=== PATIENT | female | born 1985 | race Caucasian/White ===

== ENCOUNTER 2024-07-13 09:36 | Observation (INO) ==
--- NOTE | 2024-07-13 10:15 | ED Triage Note ---
Date of Service July 13, 2024 Provider in Triage Author: Marin Parker History of Present Illness This patient was briefly evaluated while in triage. An abbreviated physical exam was performed. This patient is a 39-year-old Female who presents to the ED for evaluation of right lower quadrant abdominal pain. Pain started Sunday night, sick to her stomach with nausea and vomiting. Patient reports that her entire abdomen was cramping. The pain has since moved to the right lower quadrant region over the following 48 hours. Patient has not noticed any obvious aggravating or alleviating factors. Patient denies any pain radiating into the back. The patient rates her discomfort a 5 out of 10. Patient denies risk for . Physical Exam CONSTITUTIONAL: Healthy and well nourished. Alert and oriented X 3. HEENT: Normocephalic, atraumatic. Pupils equal, round and reactive. NECK: Full active range of motion without discomfort. LYMPHATICS: No cervical chain adenopathy. RESPIRATORY: Clear to auscultation bilaterally with no wheezing, crackles, rhonchi or stridor. CARDIOVASCULAR: Regular rate and rhythm with no murmurs, rubs or gallops. GASTROINTESTINAL: Bowel sounds present in all quadrants. Patient has mild right lower quadrant tenderness to palpation. Negative Rovsing sign. INTEGUMENTARY: No rash or other significant dermatologic conditions noted. HEMATOLOGIC: No ecchymosis or petechiae. PSYCHIATRIC: Positive affect. NEUROLOGIC: No focal neurologic deficits noted. Initial orders for labs and / or imaging were placed and patient was placed in the waiting area until a bed is available. Please see further documentation for the full ED course.
[2024-07-13] MEDS: SODIUM CHLORIDE 0.9% 1,000 ML IV STA (10:29)
[2024-07-13 10:58] LABS: Appearance Urine Clear (Clear); Bacteria Urine Automated 1+ (None Seen); Bilirubin Urine Negative (Negative); Blood Urine Negative (Negative); Cast Urine Automated 0-2 /lpf (0-2); Color Urine Yellow; Glucose Urine UA Negative (Negative); Ketones Urine Trace (Negative); Leukocyte Esterase Urine Negative (Negative); Nitrite Urine Negative (Negative); Protein Urine Trace (Negative); Specific Gravity Urine 1.026 (1.000-1.030); Urobilinogen Urine Negative (Negative); WBC Urine Automated 0-5 /hpf (0-5)
[2024-07-13 10:59] LABS: Basophils # (auto) 0.04 K/uL (0.00-0.20); Basophils % (auto) 0.4 %; Eosinophils % (auto) 1.1 %; Hemoglobin 14.5 g/dl (12.0-16.0); Immature Granulocytes # (auto) 0.04 K/uL (0.01-0.20); Immature Granulocytes % (auto) 0.4 %; Lymphocytes # (auto) 2.78 K/uL (1.20-3.40); Lymphocytes % (auto) 30.3 %; Mean Corpuscular Hemoglobin 30.1 pg (25.0-34.0); Mean Corpuscular Hgb Conc 33.7 g/dL (32.0-36.0); Mean Corpuscular Volume 89.2 fL (80.0-100.0); Mean Platelet Volume 9.6 fL (9.4-12.4); Monocytes # (auto) 0.65 K/uL (0.11-0.59); Monocytes % (auto) 7.1 %; Neutrophils # (auto) 5.55 K/uL (1.40-6.50); Neutrophils % (auto) 60.7 %; Platelet Count 303 K/uL (130-400); RDW Coefficient of Variation 11.9 % (11.5-14.5); RDW Standard Deviation 38.6 fL (36.4-46.3); Red Blood Count 4.82 M/uL (4.20-5.40); White Blood Count 9.16 K/ul (4.8-10.8)
[2024-07-13 11:26] LABS: Albumin Globulin Ratio 1.5 (0.9-2); Albumin Level 4.8 gm/dl (3.4-5.0); BUN Creatinine Ratio 18.2 (10-20); Bilirubin,Total 0.9 mg/dl (0.2-1.0); Calcium 9.8 mg/dl (8.6-10.3); Creatinine Clr Calc Pharmacy 92.3 ml/min; Est GFR (African American) 111.2 ml/min; Est GFR (Non-African American) 95.9 ml/min; Globulin 3.1 gm/dl (2.5-4.0); Potassium 4.2 mmol/L (3.5-5.1); Total Protein 7.9 gm/dl (6.0-8.3)
[2024-07-13 11:28] LABS: Pregnancy Test, Serum Negative (Negative)
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
[2024-07-13] MEDS: OPTIRAY 320 100ml IV ONE (11:56)
--- NOTE | 2024-07-13 13:01 | CT Scan Report ---
CT OF THE ABDOMEN AND PELVIS WITH CONTRAST CLINICAL HISTORY: Right lower quadrant abdominal pain. COMPARISON STUDY: None. TECHNIQUE: Following IV administration of 93 mL of Optiray, axial images of the abdomen and pelvis we re obtained from the lung bases to the proximal femurs. Images were reviewed in the axial, sagittal, and coronal planes. IV contrast was administered without complication. Automated exposure control wa s utilized for the study. A dose lowering technique was utilized adhering to the principles of ALARA . CT DOSE: 1279.86 mGy.cm FINDINGS: Visualized portions of the lung bases are unremarkable. There is hepatic steatosis. There a re no hepatic lesions. There is no biliary or pancreatic ductal dilatation. There are multiple gallst ones within the gallbladder. There is no evidence for acute cholecystitis. The adrenal glands, kidney s and pancreas are unremarkable. There is no hydronephrosis. The appendix is mildly dilated with wall thickening. The appendix measures 1 cm in caliber. There is mild periappendiceal stranding. There is no free air. There is no abscess. No evidence for a bowel obstruction. Major vasculature is patent. There is no lymphadenopathy. IMPRESSION: 1. Findings consistent with acute appendicitis. No free air or abscess. Mild inflammation. 2. Cholelithiasis. ACT 112: Negative or not required by law. Electronically signed by: Norman Gotti M.D. 07/13/2024 12:59 PM
--- NOTE | 2024-07-13 13:47 | History & Physical Report ---
Date of Service July 13, 2024 Assessment & Plan (1) Acute appendicitis: Plan: 39-year-old woman with acute appendicitis. I discussed the risks and benefits of a laparoscopic appendectomy with her. All her questions were answered, she is agreeable to proceed. Consent has been obtained. Will take her to the operating room at the earliest convenience for laparoscopic appendectomy. History of Present Illness Primary Care Provider: Yvonne Mejia 39-year-old woman presents with a 4-day history of crampy abdominal pain in the mid abdomen that has now radiated to the right lower quadrant. It was accompanied by nausea and vomiting and slight fevers. The pain is now in the right lower quadrant and is more of a stabbing character. Last meal was yesterday evening, a banana. She has been having normal bowel movements. She has a prior history of 3 C-sections. Past Med/Surg History Problem List (Updated 07/13/24 @ 13:48 by Micha Quintana MD) Acute appendicitis Abdominal pain (Acute) No pertinent past medical history Social History Smoking Status: Never smoker Feels Safe at Home: Yes Review of Systems Review of Systems: All systems reviewed & are unremarkable except as noted in HPI & below Physical Exam Constitutional: WD/WN, vitals as above Eyes: PERRL, conjunctivae normal, anicteric sclerae Neck: trachea midline, no thyromegaly Respiratory: normal respiratory effort; no respiratory distress and no labored breathing Cardiovascular: Rate/Rhythm: regular rate and regular rhythm Gastrointestinal (Abdomen): Inspection/Auscultation: abdomen normal to inspection; abdomen not distended Percussion/Palpation: + abdomen tender ( TTP in RLQ) and abdomen soft; no guarding and abdomen not rigid Skin: no rashes, warm and dry Psychiatric: A+Ox3, euthymic affect Results & Data Results & Data Vital Signs (Past 12 Hours) Vital Signs Temp Pulse Pulse Resp BP BP Pulse Ox 07/13/24 12:26 81 18 149/77 H 97 07/13/24 10:16 36.7 C 86 20 149/89 H 99 O2 Del Method 07/13/24 12:26 Room Air 07/13/24 10:16 Room Air Laboratory Results 07/13/24 Range/Units 10:30 WBC 9.16 (4.8-10.8) K/ul RBC 4.82 (4.20-5.40) M/uL Hgb 14.5 (12.0-16.0) g/dl Hct 43.0 (37.0-47.0) % MCV 89.2 (80.0-100.0) fL MCH 30.1 (25.0-34.0) pg MCHC 33.7 (32.0-36.0) g/dL RDW Std Deviation 38.6 (36.4-46.3) fL RDW Coeff of Rodolfo 11.9 (11.5-14.5) % Plt Count 303 (130-400) K/uL MPV 9.6 (9.4-12.4) fL Immature Gran % (Auto) 0.4 % Neut % (Auto) 60.7 % Lymph % (Auto) 30.3 % [place] % (Auto) 7.1 % Eos % (Auto) 1.1 % Baso % (Auto) 0.4 % Neut # (Auto) 5.55 (1.40-6.50) K/uL Lymph # (Auto) 2.78 (1.20-3.40) K/uL Ellis # (Auto) 0.65 H (0.11-0.59) K/uL Eos # (Auto) 0.10 (0.00-0.50) K/uL Baso # (Auto) 0.04 (0.00-0.20) K/uL Immature Gran # (Auto) 0.04 (0.01-0.20) K/uL Sodium 138 (136-145) mmol/L Potassium 4.2 (3.5-5.1) mmol/L Chloride 105 (98-107) mmol/L Carbon Dioxide 27 (21-32) mmol/L Anion Gap 6 (3-11) BUN 14 (6-23) mg/dl Creatinine 0.77 (0.6-1.2) mg/dl Est Cr Clr Drug Dosing 92.3 ml/min Est GFR ( Amer) 111.2 ml/min Est GFR (Non-Af Amer) 95.9 ml/min BUN/Creatinine Ratio 18.2 (10-20) Glucose 101 H (70-99(Fasting)) mg/dl Calcium 9.8 (8.6-10.3) mg/dl Total Bilirubin 0.9 (0.2-1.0) mg/dl AST 26 (13-39) U/L ALT 32 (7-52) U/L Alkaline Phosphatase 84 (34-104) U/L Total Protein 7.9 (6.0-8.3) gm/dl Albumin 4.8 (3.4-5.0) gm/dl Globulin 3.1 (2.5-4.0) gm/dl Albumin/Globulin Ratio 1.5 (0.9-2) Lipase 11 (11-82) U/L HCG, Qual Negative (Negative) Urine Color Yellow Urine Appearance Clear (Clear) Urine pH 6.0 (4.5-7.5) Ur Specific [place] 1.026 (1.000-1.030) Urine Protein Trace H (Negative) Urine Glucose (UA) Negative (Negative) Urine Ketones Trace H (Negative) Urine Blood Negative (Negative) Urine Nitrite Negative (Negative) Urine Bilirubin Negative (Negative) Urine Urobilinogen Negative (Negative) Ur Leukocyte Esterase Negative (Negative) Urine WBC (Auto) 0-5 (0-5) /hpf Urine RBC (Auto) 3-5 H (0-2) /hpf U Hyaline Cast (Auto) 0-2 (0-2) /lpf U Epithel Cells (Auto) 11-20 H (0-2) /hpf Urine Bacteria (Auto) 1+ H (None Seen) Diagnostic Findings CT OF THE ABDOMEN AND PELVIS WITH CONTRAST CLINICAL HISTORY: Right lower quadrant abdominal pain. COMPARISON STUDY: None. TECHNIQUE: Following IV administration of 93 mL of Optiray, axial images of the abdomen and pelvis were obtained from the lung bases to the proximal femurs. Images were reviewed in the axial, sagittal, and coronal planes. IV contrast was administered without complication. Automated exposure control was utilized for the study. A dose lowering technique was utilized adhering to the principles of ALARA. CT DOSE: 1279.86 mGy.cm FINDINGS: Visualized portions of the lung bases are unremarkable. There is hepatic steatosis. There are no hepatic lesions. There is no biliary or pancreatic ductal dilatation. There are multiple gallstones within the gallbladder. There is no evidence for acute cholecystitis. The adrenal glands, kidneys and pancreas are unremarkable. There is no hydronephrosis. The appendix is mildly dilated with wall thickening. The appendix measures 1 cm in caliber. There is mild periappendiceal stranding. There is no free air. There is no abscess. No evidence for a bowel obstruction. Major vasculature is patent. There is no lymphadenopathy. IMPRESSION: 1. Findings consistent with acute appendicitis. No free air or abscess. Mild inflammation. 2. Cholelithiasis. ACT 112: Negative or not required by law. Electronically signed by: Norman Gotti M.D. 07/13/2024 12:59 PM Dictated: 07/13/24 125
--- NOTE | 2024-07-13 14:02 | Anesthesiology Consultation ---
Date of Service July 13, 2024 Assessment & Plan Chart Review Chart Review: Acceptable Risk for Surgery and Patient NOT seen in Pre Admission Testing Consults Requested none ASA [id number] Proposed Anesthesia Anesthesia Type: General History Surgery Operation Date: 07/13/24 14:00 Proposed Procedures p Laparoscopic Appendectomy - Micha Quintana MD Height/Weight Height: 5 ft Weight: 83.8 kg Allergies Allergy/AdvReac Type Severity Reaction Status Date / Time Milk Containing Products Allergy Intermediate Gastrointestinal Unverified 07/13/24 13:58 (Dairy) Upset codeine Allergy Unknown Childhood Unverified 07/13/24 13:58 allergy - Unknown - Possible Rash/Irritability erythromycin base Allergy Unknown Childhood Unverified 07/13/24 13:58 [From Pediazole] allergy - Unknown - Possible Rash/Irritability sulfisoxazole Allergy Unknown Childhood Unverified 07/13/24 13:58 [From Pediazole] allergy - Unknown - Possible Rash/Irritability Medications Home Medications Medication Instructions Recorded Confirmed Last Taken No Known Home Medications 07/13/24 07/13/24 Unknown Past Medical History obese Exercise / Class Metabolic Activity II 4-5 Yardwork/Stairs/Walk up hill Past Anesthesia History No Hx of Anesthesia Complications and No Family Hx of Anesthesia Complications History of PONV No Hx of PONV and No Hx of Motion Sickness Social History Smoking Status: Never smoker Physical Exam Vital Signs Last Vital Signs Temp 36.7 C 07/13/24 10:16 Pulse 81 07/13/24 12:26 Resp 18 07/13/24 12:26 BP 149/77 H 07/13/24 12:26 Pulse Ox 97 07/13/24 12:26 O2 Del Method Room Air 07/13/24 12:26 Testing Laboratory Results 07/13/24 10:30 07/13/24 10:30 Urine Color Yellow 07/13/24 10:30 Urine Appearance Clear (Clear) 07/13/24 10:30 Urine pH 6.0 (4.5-7.5) 07/13/24 10:30 Ur Specific [place] 1.026 (1.000-1.030) 07/13/24 10:30 Urine Protein Trace (Negative) H 07/13/24 10:30 Urine Glucose (UA) Negative (Negative) 07/13/24 10:30 Urine Ketones Trace (Negative) H 07/13/24 10:30 Urine Nitrite Negative (Negative) 07/13/24 10:30 Ur Leukocyte Esterase Negative (Negative) 07/13/24 10:30 Urine WBC (Auto) 0-5 /hpf (0-5) 07/13/24 10:30 Urine RBC (Auto) 3-5 /hpf (0-2) H 07/13/24 10:30 U Hyaline Cast (Auto) 0-2 /lpf (0-2) 07/13/24 10:30 U Epithel Cells (Auto) 11-20 /hpf (0-2) H 07/13/24 10:30 Urine Bacteria (Auto) 1+ (None Seen) H 07/13/24 10:30
[2024-07-13] MEDS: PIPERACILLIN/TAZOBACTAM 4.5 GM/100 ML BAG IV ONE (14:42)
[2024-07-13] MEDS ORDERED: PROPOFOL IV EMULSION 10 MG/ML 20 ML VIAL IV ONE (14:46)
[2024-07-13] MEDS ORDERED: fentaNYL citrate PF 100 MCG/2 ML VIAL ONE (14:47)
[2024-07-13] MEDS ORDERED: MIDAZOLAM HCL 1 MG/ML 2ML VIAL ONE (14:48)
[2024-07-13] MEDS ORDERED: LABETALOL HCL IV 5 MG/ML 20ML IV PRN (15:05)
[2024-07-13] MEDS ORDERED: PROMETHAZINE HCL 6.25 MG in SODIUM CHLORIDE 0.9% 50 ML IV PRN (15:05)
[2024-07-13] MEDS ORDERED: ONDANSETRON INJ 2 MG/ML 2 ML VIAL IV PRN ×2 (15:05→17:20)
[2024-07-13] MEDS ORDERED: FLUMAZENIL 0.1 MG/1 ML 10 ML VIAL IV PRN (15:05)
[2024-07-13] MEDS ORDERED: NALOXONE HCL 0.4 MG/1 ML VIAL/CARP IV PRN (15:05)
[2024-07-13] MEDS ORDERED: ATROPINE SULFATE 0.1 MG/ML 10ML SYR IV PRN (15:05)
[2024-07-13] MEDS ORDERED: ePHEDrine sulfate 50 MG/ML AMP IV PRN (15:05)
[2024-07-13] MEDS ORDERED: NEOSTIGMINE METHYLSULFATE 1 MG/ML 10ML VIAL ONE (15:24)
[2024-07-13] MEDS ORDERED: GLYCOPYRROLATE 0.2 MG/ML VIAL ONE (15:24)
[2024-07-13] MEDS ORDERED: DEXAMETHASONE SOD INJ 4 MG/ML VIAL ONE (15:24)
[2024-07-13] MEDS ORDERED: SUCCINYLCHOLINE CHLORIDE 20 MG/ML 10 ML VIAL IV ONE (15:24)
[2024-07-13] MEDS ORDERED: CISATRACURIUM BESYLATE IV SOLN 2 MG/ML 10 ML VIAL IV ONE (15:24)
[2024-07-13] MEDS ORDERED: ONDANSETRON INJ 2 MG/ML 2 ML VIAL ONE (15:24)
--- NOTE | 2024-07-13 15:56 | Post Operative Brief Note ---
Immediate Post Op Note Date of Surgery July 13, 2024 Pre & Post Diagnosis Operation Date: 07/13/24 14:00 Pre-Op Diagnosis: Acute appendicitis Post-Op Diagnosis: Acute appendicitis I identified the patient and participated in the time-out.: Yes Procedure Operation Date: 07/13/24 14:00 Actual Procedures p Laparoscopic Appendectomy - Micha Quintana MD Surgeon Micha Quintana MD Calculator Operator None Estimated Blood Loss 5 Findings Consistent with Post-Op Diagnosis
--- NOTE | 2024-07-13 15:57 | Operative Report ---
Post Operative Report Pre & Post Diagnosis Operation Date: 07/13/24 14:00 Pre-Op Diagnosis: Acute appendicitis Post-Op Diagnosis: Acute appendicitis I identified the patient and participated in the time-out.: Yes Procedure Operation Date: 07/13/24 14:00 Actual Procedures p Laparoscopic Appendectomy with laparoscopic lysis of adhesions - Micha Quintana MD Surgeon Micha Quintana MD Community Service Director None Estimated Blood Loss 5 Findings Consistent with Post-Op Diagnosis acute appendicitis without perforation, significant omental adhesions to the anterior abdominal wall Specimens appendix Drains none Anesthesia Type General Complications none Description of Procedure the patient was taken to the operating room, and placed supine on the operating table. A timeout was performed, perioperative antibiotics were administered, SCD boots were placed. After adequate anesthesia and analgesia was obtained, the abdomen was prepped and draped in the normal sterile fashion. A 1 cm incision was made in the supraumbilical region and carried down to the level of the fascia. A trach hook was used to grasp the fascia and elevated and a varies needle was used to enter the abdominal cavity. The abdomen was insufflated to a pressure of 15 mmHg, and a 5 mm trocar was placed in this location. A 5 mm 30 degree laparoscope was placed into the abdominal cavity, and the abdomen was surveyed. There were significant adhesions of the omentum to the anterior abdominal wall in the lower abdomen. The patient was placed in Trendelenburg and slightly to the left. One 5 mm trocar was placed in the right upper quadrant, and one 12 mm trocar was placed in the left lower quadrant under direct visualization. The omental adhesions to the anterior abdominal wall were taken down with combination of cold scissor dissection and blunt forcep dissection.The right colon was identified and traced down to the cecum. The appendix was identified and elevated anteriorly and medially. A window was created at the base of the appendix with a [place] dissector. The Endo VIK stapler was used to transect the appendix at its base through noninflamed tissue, and subsequently the mesoappendix. The appendix was placed in an Endo Catch bag, and removed via the left lower quadrant port site. Attention was turned to hemostasis, which was excellent. The abdomen was copiously irrigated and suctioned free, and again hemostasis was found to be excellent. All trochars removed under direct visualization. The abdomen was desufflated. The fascia in the 12 mm port site was closed with a 0 Vicryl suture. The skin was closed with a running 4-0 Monocryl subcuticular stitch. Dermabond was applied. The patient tolerated the procedure without complication, and was transferred in stable condition to the PACU. All instrument, needle, and sponge counts were correct at the end of the case. I attest to the content of the Intraoperative Record and any orders documented therein. Any exceptions are noted below.
[2024-07-13] MEDS: fentaNYL citrate PF 100 MCG/2 ML VIAL IV PRN (16:22)
[2024-07-13] MEDS: fentaNYL citrate PF 100 MCG/2 ML VIAL ONE (16:33)
--- NOTE | 2024-07-13 17:18 | Anesthesiology Progress Note ---
Date of Service July 13, 2024 Anesthesia Post Procedure Vital Signs Vital Signs: Temp Pulse Pulse Pulse Resp BP BP 07/13/24 16:50 36.6 C 60 12 114/71 07/13/24 16:40 59 L 16 125/71 07/13/24 16:30 57 L 16 124/67 07/13/24 16:20 73 16 119/67 07/13/24 16:10 36.1 C L 93 H 18 122/83 07/13/24 14:41 70 18 147/101 H 07/13/24 12:26 81 18 149/77 H 07/13/24 10:16 36.7 C 86 20 149/89 H Pulse Ox O2 Del Method O2 Flow Rate 07/13/24 16:50 95 Room Air 07/13/24 16:40 95 Oxymask 2 07/13/24 16:30 99 Oxymask 4 07/13/24 16:20 96 Oxymask 4 07/13/24 16:10 97 Oxymask 6 07/13/24 14:41 97 Room Air 07/13/24 12:26 97 Room Air 07/13/24 10:16 99 Room Air Pain Intensity Abdomen: Pain Intensity: 3 Transfer of Care Handoff Completed per policy Notes Mental Status: alert / awake / arousable Patient Amnestic to Procedure: Yes Nausea / Vomiting: adequately controlled Pain: adequately controlled Airway Patency, RR, SpO2: stable & adequate BP & HR: stable & adequate Hydration State: stable & adequate Anesthetic Complications: no major complications apparent
[2024-07-13] MEDS ORDERED: KETOROLAC 30 MG/ML VIAL IV PRN (17:20)
[2024-07-13] MEDS ORDERED: diphenhydrAMINE Capsule 25 MG CAP PO PRN (17:20)
[2024-07-13] MEDS ORDERED: MoRPHine SULFATE 2 MG/ML CARP IV PRN (17:20)
[2024-07-13] MEDS ORDERED: PROMETHAZINE 12.5 MG/50.5 ML BAG IV PRN (17:20)
[2024-07-13] MEDS: BUPIVACAINE/EPINEPHRINE 0.5% MPF 1:200,000 30 ML VIAL ONE (17:36)
[2024-07-13 18:04] VITALS: RESP 16
[2024-07-13] MEDS: oxyCODONE/ACETAMINOPHEN 5mg/325mg TAB PO PRN (18:15)
[2024-07-14] MEDS: ACETAMINOPHEN 500 MG TAB PO PRN (07:48)
[2024-07-14] MEDS: ENOXAPARIN INJ 40 MG/0.4 ML SYR SQ SCH (07:48)
[2024-07-14 07:57] VITALS: BP 145/66; PULSE 68; TEMP 97.9; O2SAT 95
--- NOTE | 2024-07-14 09:08 | Discharge Summary ---
Date of Service July 14, 2024 Admission HPI Per Admitting Provider 39-year-old woman presents with a 4-day history of crampy abdominal pain in the mid abdomen that has now radiated to the right lower quadrant. It was accompanied by nausea and vomiting and slight fevers. The pain is now in the right lower quadrant and is more of a stabbing character. Last meal was yesterday evening, a banana. She has been having normal bowel movements. She has a prior history of 3 C-sections. Principal Diagnosis acute appendicitis Discharge Exam Constitutional WD/WN, vitals as above cooperative and comfortable; no acute distress and not ill appearing Respiratory normal respiratory effort; no respiratory distress Gastrointestinal (Abdomen) Inspection/Auscultation: abdomen normal to inspection and + abdominal surgical incision (c/d/i with dermabond); abdomen not distended Percussion/Palpation: + abdomen tender (mild at incision sites) and abdomen soft; no guarding, abdomen not rigid and abdomen not firm Skin no rashes, warm and dry Psychiatric A+Ox3, euthymic affect Discharge Data Allergies Allergy/AdvReac Type Severity Reaction Status Date / Time Milk Containing Products Allergy Intermediate Gastrointestinal Unverified 07/13/24 13:58 (Dairy) Upset codeine Allergy Unknown Childhood Unverified 07/13/24 13:58 allergy - Unknown - Possible Rash/Irritability erythromycin base Allergy Unknown Childhood Unverified 07/13/24 13:58 [From Pediazole] allergy - Unknown - Possible Rash/Irritability sulfisoxazole Allergy Unknown Childhood Unverified 07/13/24 13:58 [From Pediazole] allergy - Unknown - Possible Rash/Irritability Procedures Performed Operation Date: 07/13/24 14:00 Actual Procedures p Laparoscopic Appendectomy - Micha Quintana MD Ordered Studies 07/13/24 10:19 CT abd pelvis IV con only Stat Hospital Course (1) Acute appendicitis: Patient taken to operating room for laparoscopic appendectomy on 07/13/[address] Micha Quintana. Found to have uncomplicated appendicitis. Transferred to med/surg floor postoperatively. Diet and activity as tolerated. Pain management as needed. POD # 1 avss, pain controlled, tolerated regular diet, ambulated hallway. Patient discharged home on POD # 1 in stable condition. Total Time Total Time Spent Total Time Spent (In Minutes): 20 Total Time Includes: Examination of the Patient, Discharge Planning and Medication Reconciliation Discharge Plan Discharge Items Patient Disposition: Home - Self-Care Reason For Visit: ABDOMINAL PAIN, NAUSEA, VOMITING Discharge Diagnosis: Acute appendicitis Activity: Per Instructions section Non-emergency contact: Primary Care Provider and Surgeon Call non-emergency contact if: you have any medication questions, you have a fever, your temperature is above 101, your wound has increased redness, your wound has increased drainage and your wound pain has increased Follow-up/Referrals: Micha Quintana MD [Physician] - Yvonne Mejia [Primary Care Provider] - Diet: Regular Addtl Attending Provider Instructions: Post-Surgical ~Discharge Instructions Activity Recommendations: - lifting limitation: (20 pounds for 2 weeks), - exercise/sex/sports limit: (nonstrenuous for 2 weeks), - driving or machine use limit: (none for 1 week or until pain free and no longer taking narcotic pain medication) - Shower/bathe limit: (may shower beginning tomorrow) Diet: - Resume previous diet SPECIAL CARE INSTRUCTIONS: - May shower. Let water run over area and pat dry. - Leave surgical glue on incisions, this will fall off on its own. - Call the surgeon's office with any questions or concerns - - (ex. temperature higher than 101 degrees F, excessive bleeding or pain). MEDICATIONS: - Resume previous medications unless instructed otherwise by your surgeon. May alternate extra strength Tylenol and Ibuprofen as needed for mild to moderate pain -650 mg Tylenol every 6 hours as needed - Ibuprofen 600 mg every 6 hours as needed take with food - Percocet 1 every 6 hours, as needed for moderate to severe pain - Recommend daily stool softener (Colace) while taking narcotic pain medication to prevent constipation or straining. Drink plenty of water daily. FOLLOW UP VISIT: - If not already scheduled, please call the office to schedule a two week fo llow-up appointment. Office number Pending Studies at Discharge: Yes (pathology, will be reviewed at postop visit) Stand-Alone Forms: My [facility] [employer], Work/School Release, Smoking Cessation Medications and DC Order Prescriptions: New oxycodone-acetaminophen [Percocet] 5-325 mg tablet 1 tab PO Q6H PRN (Reason: pain) Qty: 5 0RF Discharge Orders: Discharge Order (Routine); Ordered 07/14/24 Ordered By: Lori Gomez Admission Data Admit Date/Time: 07/13/24 16:00 Attending Provider: Micha Quintana Admit Provider: Micha Quintana Primary Care Provider: Yvonne Mejia
== END 2024-07-14 10:22 | disposition home or self-care (01) ==
LOC: ED 09:36 → 3W 14:30 → OR 14:30